=== PATIENT | male | born 1995 | race Caucasian/White ===

== ENCOUNTER 2017-02-10 04:30 | Emergency (ER) | payer SELFPAY ==
--- NOTE | ~2017-02-10 | ER ---
PATIENT'S NAME: ARMANDO TAYLOR [facility] AGE: 21 Y [address] ROOM: [place] [id number] LOCATION: ED ADMIT DATE: 02/10/2017 ER/Outpatient Report DISCHARGE DATE: 02/10/2017 FAMILY PHYSICIAN: PHYSICIAN, NO ATTENDING PHYSICIAN: Francie Jimenez ADDENDUM: ASSESSMENT: Tonsillitis with early peritonsillar abscess. PLAN: Augmentin 875 twice a day. Follow up with his regular doctor in 24 to 48 hours. Return here for worsening pain and difficulty swallowing. FRANCIE JIMENEZ MD JDB/modl /[id number] d: 02/11/17 0550 t: 02/12/17 0555, OUTPATIENT REPORT
--- NOTE | ~2017-02-10 | ER ---
PATIENT'S NAME: ARMANDO TAYLOR [facility] AGE: 21 Y [address] ROOM: [place] [address] LOCATION: ED ADMIT DATE: 02/10/2017 ER/Outpatient Report DISCHARGE DATE: 02/10/2017 FAMILY PHYSICIAN: PHYSICIAN, NO ATTENDING PHYSICIAN: Francie Jimenez Time of Arrival: 0430 hours. Time of Evaluation: 0445 hours. CHIEF COMPLAINT: This is a 21-year-old male. He was previously healthy. He is in with complaint of sore throat and difficulty swallowing for the past 3 days and fever. He states that the pain and difficulty swallowing had become worse today. PAST MEDICAL HISTORY: He has no chronic medical problems. CURRENT MEDICATIONS: None. REVIEW OF SYSTEMS: Otherwise negative. SOCIAL HISTORY: He is a nonsmoker. PHYSICAL EXAMINATION: GENERAL: An alert cooperative male, in no acute distress. He had a hoarse voice. SKIN: Warm and dry. Color was normal. He was febrile. HEAD, EARS, EYES, NOSE, AND THROAT: Revealed both tonsils were markedly enlarged and injected with thick purulent exudate. The left tonsil was more prominent. Tonsillar bed appeared raised. Uvula was midline. There was no trismus. NECK: Supple. He had tender anterior cervical adenopathy. HEART AND LUNGS: Normal. ABDOMEN: Soft. EXTREMITIES: Normal. NEUROLOGIC: Normal. EMERGENCY DEPARTMENT COURSE: CT soft tissue neck revealed a 1.2 x 1.7 x 2.4 cm, poorly defined phlegmon versus early abscess, adjacent to his left tonsil. I discussed this with the patient, started him on Augmentin and Schaller, and encouraged him to return if PATIENT'S NAME: ARMANDO TAYLOR [facility] AGE: 21 Y [address] ROOM: [place] [address] LOCATION: ED ADMIT DATE: 02/10/2017 ER/Outpatient Report DISCHARGE DATE: 02/10/2017 FAMILY PHYSICIAN: PHYSICIAN, NO ATTENDING PHYSICIAN: Francie Jimenez the pain becomes more severe or if the fever does not resolve in 48 to 72 hours. FRANCIE JIMENEZ MD JDB/modl /[id number] d: 02/11/17 0545 t: 02/12/17 0552, OUTPATIENT REPORT
[2017-02-10 05:10] LABS: BASOPHIL % 0.2 %; HEMATOCRIT 40.2 % (37.0-53.0); HEMOGLOBIN 14.4 g/dL (12.0-17.0); IMMATURE GRANULOCYTE # 0.1 K/uL (0.0-0.3); IMMATURE GRANULOCYTE % 0.4 %; LYMPHOCYTE % 5.6 %; MCH 30.9 pg (27.0-34.0); MCHC 35.8 gm/dL (32.0-36.5); MCV 86.3 fl (83.0-98.0); MONOCYTE # 1.3 K/uL (0.0-1.0); MONOCYTE % 7.4 %; MPV 9.3 fl (9.4-12.4); NEUTROPHIL % 86.4 %; NRBC % 0 /100WBC (0-0.00); PLATELET COUNT 199 K/uL (150-450); RBC 4.66 M/uL (4.00-6.00); RDW-CV 11.7 % (11.9-14.6); WBC 17.3 K/uL (4.0-11.0)
[2017-02-10 05:27] LABS: ALBUMIN 2.9 gm/dL (3.5-5.0); ALK PHOS 73 IU/L (33-138); ALT 19 IU/L (12-78); ANION GAP 11.7 (10.0-19.0); AST 15 IU/L (10-40); BLOOD UREA NITROGEN 13 mg/dL (6-24); CALCIUM 8.4 mg/dL (8.5-10.5); CHLORIDE 100 mMol/L (96-110); CO2 25 mMol/L (22-32); CREATININE 0.9 mg/dL (0.6-1.3); POTASSIUM 3.7 mMol/L (3.7-5.1); SODIUM 133 mMol/L (135-145); TOTAL PROTEIN 6.6 g/dL (6.0-8.4)
== END 2017-02-10 05:59 | disposition disaster alternative care site (69) ==
LOC: GMED 04:30
PROVIDERS: Emergency Medicine
DX: J36 Peritonsillar abscess (principal)
CPT/HCPCS: J0696; J7030; Q9967